=== PATIENT | female | born 1950 | race African-American/Black ===

== ENCOUNTER 2017-07-20 23:35 | Emergency (ER) | payer OTHER ==
[2017-07-21] MEDS: HYDROCODONE/APAP (10/325) TAB PO (00:34)
[2017-07-21] MEDS: ONDANSETRON (ODT) 4 MG TAB ODT (00:34)
== END 2017-07-21 02:54 | disposition home or self-care (01) ==
LOC: E/R 23:35
DX: M25.512 Pain in left shoulder (principal); M25.561 Pain in right knee; Z87.891 Personal history of nicotine dependence
CPT/HCPCS: 73030; 73562; 99284-25

== ENCOUNTER 2018-02-08 13:11 | Inpatient (IN) | payer OTHER ==
[2018-02-08 14:58] LABS: ADD MAN DIFF? NO
[2018-02-08 15:06] LABS: BASOPHIL # 0.1 10^3/ul (0.0-0.1); BASOPHILS % 0.8 % (0.0-2.0); EOSINOPHILS # 0.4 10^3/ul (0.0-0.5); EOSINOPHILS % 6.3 % (0.0-7.0); HEMATOCRIT 37.3 % (37.0-47.0); HEMOGLOBIN 12.2 g/dl (12.0-16.0); LYMPHOCYTES # 1.4 10^3/ul (0.8-2.9); LYMPHOCYTES % 23.9 % (15.0-51.0); MEAN CORPUSCULAR HEMOGLOBIN 30.1 pg (29.0-33.0); MEAN CORPUSCULAR HGB CONC 32.7 g/dl (32.0-37.0); MEAN CORPUSCULAR VOLUME 92.1 fl (82.0-101.0); MEAN PLATELET VOLUME 9.4 fl (7.4-10.4); MONOCYTE # 0.6 10^3/ul (0.3-0.9); MONOCYTES % 10.3 % (0.0-11.0); NEUTROPHIL # 3.5 10^3/ul (1.6-7.5); NEUTROPHILS % 58.5 % (39.0-77.0); PLATELET COUNT 272 10^3/UL (140-415); RED BLOOD COUNT 4.05 10^6/ul (4.20-5.40); RED CELL DISTRIBUTION WIDTH 13.2 % (11.5-14.5)
[2018-02-08 15:14] LABS: ADD UMIC YES; UR ASCORBIC ACID NEGATIVE (NEGATIVE); UR BACTERIA FEW /HPF (NONE SEEN); UR BILIRUBIN (Dip) NEGATIVE (NEGATIVE); UR BLOOD (Dip) NEGATIVE (NEGATIVE); UR CLARITY TURBID (CLEAR); UR COLOR YELLOW (YELLOW); UR GLUCOSE (Dip) NEGATIVE (NEGATIVE); UR KETONES (Dip) NEGATIVE (NEGATIVE); UR LEUKOCYTE ESTERASE (Dip) 3+ Leu/ul (NEGATIVE); UR MUCUS FEW /HPF (NONE SEEN); UR NITRITE (Dip) NEGATIVE (NEGATIVE); UR RBC 9 /HPF (0-5); UR SPECIFIC GRAVITY (Dip) 1.026 (1.003-1.030); UR SQUAMOUS EPITHELIAL CELL FEW /HPF (FEW); UR TOTAL PROTEIN (Dip) 1+ mg/dl (NEGATIVE); UR UROBILINOGEN (Dip) NEGATIVE (NEGATIVE); UR WBC 15 /HPF (0-5)
[2018-02-08] MEDS: SOD CHLORIDE 0.9% 1,000 ML IV (15:15)
[2018-02-08] MEDS: morphine 4 MG/ML VIAL IV (15:15)
[2018-02-08] MEDS: ONDANSETRON 4 MG INJ IV ×2 (15:15→22:35)
[2018-02-08 15:24] LABS: ALANINE AMINOTRANSFERASE 26 IU/L (13-69); ALBUMIN 3.8 g/dl (3.3-4.9); ALBUMIN/GLOBULIN RATIO 1.08; ALKALINE PHOSPHATASE 94 IU/L (42-121); ANION GAP 6 (5-13); ASPARTATE AMINO TRANSFERASE 32 IU/L (15-46); BILIRUBIN,INDIRECT 0.2 mg/dl (0-1.1); BILIRUBIN,TOTAL 0.2 mg/dl (0.2-1.3); BLOOD UREA NITROGEN 11 mg/dl (7-20); CALCIUM 9.9 mg/dl (8.4-10.2); CARBON DIOXIDE 32 mmol/L (21-31); CHLORIDE 105 mmol/L (97-110); CREATININE 0.58 mg/dl (0.44-1.00); GLUCOSE 99 mg/dl (70-220); LIPASE 133 U/L (23-300); POTASSIUM 3.4 mmol/L (3.5-5.1); SODIUM 143 mmol/L (135-144); TOTAL PROTEIN 7.3 g/dl (6.1-8.1)
[2018-02-08] MEDS: METOCLOPRAMIDE 10 MG INJ IV (16:33)
[2018-02-08] MEDS: CEFTRIAXONE 1 GM/50 ML (PMX) 50 ML IVPB (16:35)
[2018-02-08] MEDS: HYDROmorphONE 2 MG/ML SYG IV (16:36)
[2018-02-08] MEDS ORDERED: SOD CHLORIDE 0.9% 1,000 ML IV (17:35)
[2018-02-08] MEDS ORDERED: METOCLOPRAMIDE 10 MG INJ IV (18:00)
[2018-02-08] MEDS ORDERED: NACL 0.9% 3 ML SYG IV (18:00)
[2018-02-08] MEDS ORDERED: PROCHLORPERAZINE 10 MG INJ IV (18:00)
[2018-02-08] MEDS ORDERED: ACETAMINOPHEN 325 MG TAB PO ×2 (18:00)
[2018-02-08] MEDS ORDERED: morphine 4 MG/ML VIAL IV (18:00)
[2018-02-08] MEDS ORDERED: ONDANSETRON 4 MG INJ IV (18:00)
[2018-02-08] MEDS ORDERED: DOCUSATE SODIUM 100 MG CAP PO (18:00)
[2018-02-08] MEDS: NS + KCL 20 MEQ 1,000 ML IV (21:14)
[2018-02-08] MEDS: PANTOPRAZOLE 40 MG INJ IV (21:15)
[2018-02-08] MEDS ORDERED: HYDROCODONE/APAP (10/325) TAB PO (21:30)
[2018-02-08] MEDS ORDERED: CYPROHEPTADINE 4 MG TAB PO (22:00)
[2018-02-08] MEDS ORDERED: ALBUTEROL HFA 8 GM INHALER INH ×2 (22:00→23:00)
[2018-02-08] MEDS: CYPROHEPTADINE 4 MG TAB PO (22:30)
[2018-02-09] MEDS ORDERED: IBUPROFEN 600 MG TAB PO
[2018-02-09] MEDS: HYDROmorphONE 1 MG/ML SYG IV ×5 (00:16→20:40)
[2018-02-09] MEDS: DIPHENHYDRAMINE 50 MG INJ IV (00:17)
[2018-02-09] MEDS: PETROLATUM 28.35 GM JELLY TOP (00:18)
[2018-02-09] MEDS: CARISOPRODOL 350 MG TAB PO ×4 (00:19→20:39)
[2018-02-09] MEDS: AMITRIPTYLINE 50 MG TAB PO ×2 (00:19→20:39)
[2018-02-09] MEDS ORDERED: ALBUTEROL HFA 8 GM INHALER INH (01:00)
[2018-02-09] MEDS: NS + KCL 20 MEQ 1,000 ML IV ×3 (02:00→17:09)
[2018-02-09] MEDS: CYPROHEPTADINE 4 MG TAB PO ×3 (06:00→22:00)
[2018-02-09 06:07] LABS: ANION GAP 7 (5-13); BLOOD UREA NITROGEN 10 mg/dl (7-20); CALCIUM 8.6 mg/dl (8.4-10.2); CARBON DIOXIDE 25 mmol/L (21-31); CHLORIDE 112 mmol/L (97-110); CREATININE 0.57 mg/dl (0.44-1.00); GLUCOSE 91 mg/dl (70-220); SODIUM 144 mmol/L (135-144)
[2018-02-09 06:15] LABS: POTASSIUM 2.9 mmol/L (3.5-5.1)
[2018-02-09] MEDS ORDERED: POTASSIUM CHLORIDE (SR) 20 MEQ TAB PO (08:00)
[2018-02-09] MEDS ORDERED: DOCUSATE SODIUM 100 MG CAP PO (09:00)
[2018-02-09] MEDS ORDERED: CEPHALEXIN 500 MG CAP PO (09:00)
[2018-02-09] MEDS ORDERED: FERROUS SULFATE (EC) 325 MG TAB PO (09:00)
[2018-02-09] MEDS ORDERED: CARISOPRODOL 350 MG PO (09:00)
[2018-02-09] MEDS: TRIAMCINOLONE ACET 0.1% 15 GM OINT TOP (09:00)
[2018-02-09] MEDS ORDERED: predniSONE 20 MG TAB PO (09:00)
[2018-02-09] MEDS: FERROUS SULFATE (EC) 325 MG TAB PO ×2 (09:30→20:39)
[2018-02-09] MEDS ORDERED: DIPHENHYDRAMINE 25 MG CAP PO (09:30)
[2018-02-09] MEDS: ENOXAPARIN 40 MG/0.4 ML SYG SC (09:31)
[2018-02-09] MEDS: PANTOPRAZOLE 40 MG INJ IV (09:32)
[2018-02-09] MEDS: POTASSIUM CHLORIDE 20 MEQ POWDER FOR ORAL SOLN PO ×2 (09:32→11:55)
[2018-02-09] MEDS ORDERED: BETAMETHASONE TOP (10:00)
[2018-02-09] MEDS: ONDANSETRON 4 MG INJ IV (11:53)
[2018-02-09] MEDS: CEFTRIAXONE 1 GM/50 ML (PMX) 50 ML IVPB (16:13)
[2018-02-09] MEDS: METOCLOPRAMIDE 10 MG INJ IV (17:09)
[2018-02-09] MEDS: BARIUM SULFATE 135 ML (E-Z HD) PO (19:00)
[2018-02-09] MEDS: TRIAMCINOLONE ACET 0.1% 15 GM CR TOP (20:39)
[2018-02-09] MEDS: BETAMETHASONE DIPROPIONATE TOP (21:19)
[2018-02-10] MEDS: METOCLOPRAMIDE 10 MG INJ IV ×5 (00:09→23:51)
[2018-02-10] MEDS: NS + KCL 20 MEQ 1,000 ML IV ×4 (02:58→23:57)
[2018-02-10] MEDS: HYDROmorphONE 1 MG/ML SYG IV ×8 (03:02→23:51)
[2018-02-10] MEDS: CYPROHEPTADINE 4 MG TAB PO ×3 (06:01→23:51)
[2018-02-10] MEDS: CEFTRIAXONE 1 GM/50 ML (PMX) 50 ML IVPB (09:34)
[2018-02-10] MEDS: PANTOPRAZOLE 40 MG INJ IV (09:34)
[2018-02-10] MEDS: CARISOPRODOL 350 MG TAB PO ×3 (09:35→20:26)
[2018-02-10] MEDS: FERROUS SULFATE (EC) 325 MG TAB PO ×2 (09:36→20:27)
[2018-02-10] MEDS: ENOXAPARIN 40 MG/0.4 ML SYG SC (09:39)
[2018-02-10] MEDS: TRIAMCINOLONE ACET 0.1% 15 GM CR TOP ×2 (09:42→20:29)
[2018-02-10] MEDS: PETROLATUM 28.35 GM JELLY TOP (10:15)
[2018-02-10] MEDS ORDERED: DIPHENHYDRAMINE 25 MG CAP (11:09)
[2018-02-10] MEDS: DIPHENHYDRAMINE 50 MG CAP PO ×3 (11:20→23:50)
[2018-02-10] MEDS: DILTIAZEM (CD) 180 MG CAP PO (12:00)
[2018-02-10 12:44] LABS: ANION GAP 8 (5-13); BLOOD UREA NITROGEN 8 mg/dl (7-20); CALCIUM 9.2 mg/dl (8.4-10.2); CARBON DIOXIDE 23 mmol/L (21-31); CHLORIDE 111 mmol/L (97-110); CREATININE 0.56 mg/dl (0.44-1.00); GLUCOSE 107 mg/dl (70-220); POTASSIUM 4.4 mmol/L (3.5-5.1); SODIUM 142 mmol/L (135-144)
[2018-02-10] MEDS: AMITRIPTYLINE 50 MG TAB PO (20:26)
[2018-02-10] MEDS: ONDANSETRON 4 MG INJ IV (20:27)
[2018-02-11] MEDS: HYDROmorphONE 1 MG/ML SYG IV ×6 (03:09→20:50)
[2018-02-11] MEDS: METOCLOPRAMIDE 10 MG INJ IV ×3 (06:44→18:00)
[2018-02-11] MEDS: DIPHENHYDRAMINE 50 MG CAP PO (06:44)
[2018-02-11] MEDS: CYPROHEPTADINE 4 MG TAB PO ×3 (06:44→21:06)
[2018-02-11] MEDS: DILTIAZEM (CD) 180 MG CAP PO (09:00)
[2018-02-11] MEDS: PANTOPRAZOLE 40 MG INJ IV (09:00)
[2018-02-11] MEDS: FERROUS SULFATE (EC) 325 MG TAB PO ×2 (09:11→20:50)
[2018-02-11] MEDS: CARISOPRODOL 350 MG TAB PO ×3 (09:11→20:49)
[2018-02-11] MEDS: CEFTRIAXONE 1 GM/50 ML (PMX) 50 ML IVPB (09:11)
[2018-02-11] MEDS: ENOXAPARIN 40 MG/0.4 ML SYG SC (09:12)
[2018-02-11] MEDS: TRIAMCINOLONE ACET 0.1% 15 GM CR TOP ×2 (09:13→20:51)
[2018-02-11] MEDS: NS + KCL 20 MEQ 1,000 ML IV ×3 (09:20→21:47)
[2018-02-11] MEDS: PROPOFOL 20 ML (16:41)
[2018-02-11] MEDS: DICLOFENAC SODIUM 1% GEL 100 GM TUBE TP ×3 (17:00→20:49)
[2018-02-11 19:20] LABS: ADD UMIC NO; UR ASCORBIC ACID NEGATIVE (NEGATIVE); UR BILIRUBIN (Dip) NEGATIVE (NEGATIVE); UR BLOOD (Dip) NEGATIVE (NEGATIVE); UR CLARITY CLEAR (CLEAR); UR COLOR COLORLESS (YELLOW); UR GLUCOSE (Dip) NEGATIVE (NEGATIVE); UR KETONES (Dip) NEGATIVE (NEGATIVE); UR LEUKOCYTE ESTERASE (Dip) NEGATIVE Leu/ul (NEGATIVE); UR NITRITE (Dip) NEGATIVE (NEGATIVE); UR SPECIFIC GRAVITY (Dip) 1.008 (1.003-1.030); UR TOTAL PROTEIN (Dip) NEGATIVE (NEGATIVE); UR UROBILINOGEN (Dip) NEGATIVE (NEGATIVE)
[2018-02-11] MEDS: AMITRIPTYLINE 50 MG TAB PO (20:49)
[2018-02-11] MEDS: BETAMETHASONE DIPROPIONATE TOP (20:51)
[2018-02-12] MEDS: HYDROmorphONE 1 MG/ML SYG IV ×6 (01:39→20:32)
[2018-02-12] MEDS: METOCLOPRAMIDE 10 MG INJ IV ×2 (05:22)
[2018-02-12] MEDS: CYPROHEPTADINE 4 MG TAB PO ×3 (05:22→22:20)
[2018-02-12 05:36] LABS: ADD MAN DIFF? NO
[2018-02-12 05:48] LABS: BASOPHILS % 0.7 % (0.0-2.0); EOSINOPHILS # 0.8 10^3/ul (0.0-0.5); EOSINOPHILS % 14.6 % (0.0-7.0); HEMATOCRIT 33.4 % (37.0-47.0); HEMOGLOBIN 10.6 g/dl (12.0-16.0); LYMPHOCYTES # 1.5 10^3/ul (0.8-2.9); LYMPHOCYTES % 25.5 % (15.0-51.0); MEAN CORPUSCULAR HEMOGLOBIN 29.7 pg (29.0-33.0); MEAN CORPUSCULAR HGB CONC 31.7 g/dl (32.0-37.0); MEAN CORPUSCULAR VOLUME 93.6 fl (82.0-101.0); MONOCYTE # 0.6 10^3/ul (0.3-0.9); NEUTROPHIL # 2.8 10^3/ul (1.6-7.5); NEUTROPHILS % 48.8 % (39.0-77.0); PLATELET COUNT 237 10^3/UL (140-415); RED BLOOD COUNT 3.57 10^6/ul (4.20-5.40); RED CELL DISTRIBUTION WIDTH 13.5 % (11.5-14.5)
[2018-02-12 05:48] LABS: WHITE BLOOD COUNT 5.7 10^3/ul (4.8-10.8)
[2018-02-12 06:10] LABS: MAGNESIUM 1.7 mg/dl (1.7-2.5)
[2018-02-12 06:32] LABS: ALANINE AMINOTRANSFERASE 15 IU/L (13-69); ALBUMIN 3.2 g/dl (3.3-4.9); ALKALINE PHOSPHATASE 99 IU/L (42-121); ANION GAP 7 (5-13); ASPARTATE AMINO TRANSFERASE 20 IU/L (15-46); BLOOD UREA NITROGEN 6 mg/dl (7-20); CALCIUM 8.9 mg/dl (8.4-10.2); CARBON DIOXIDE 27 mmol/L (21-31); CHLORIDE 108 mmol/L (97-110); CREATININE 0.56 mg/dl (0.44-1.00); GLUCOSE 111 mg/dl (70-220); POTASSIUM 4.1 mmol/L (3.5-5.1); SODIUM 142 mmol/L (135-144); TOTAL PROTEIN 6.1 g/dl (6.1-8.1)
[2018-02-12] MEDS: NS + KCL 20 MEQ 1,000 ML IV ×2 (06:42→23:18)
[2018-02-12] MEDS: CARISOPRODOL 350 MG TAB PO ×3 (10:28→20:28)
[2018-02-12] MEDS: CEFTRIAXONE 1 GM/50 ML (PMX) 50 ML IVPB (10:28)
[2018-02-12] MEDS: DICLOFENAC SODIUM 1% GEL 100 GM TUBE TP ×4 (10:28→20:28)
[2018-02-12] MEDS: FERROUS SULFATE (EC) 325 MG TAB PO ×2 (10:28→20:28)
[2018-02-12] MEDS: TRIAMCINOLONE ACET 0.1% 15 GM CR TOP ×2 (10:29→22:20)
[2018-02-12] MEDS: ENOXAPARIN 40 MG/0.4 ML SYG SC (10:31)
[2018-02-12] MEDS: METOCLOPRAMIDE 5 MG TAB PO ×3 (11:54→20:31)
[2018-02-12] MEDS: DIPHENHYDRAMINE 50 MG CAP PO ×2 (13:04→20:31)
[2018-02-12] MEDS: SUCRALFATE 1 GM TAB PO ×3 (13:04→20:27)
[2018-02-12] MEDS: PANTOPRAZOLE (EC) 40 MG TAB PO (17:52)
[2018-02-12] MEDS: AMITRIPTYLINE 50 MG TAB PO (20:27)
== END 2018-02-12 23:50 | disposition home or self-care (01) | DRG 690 ==
LOC: E/R 13:11 → PP2 17:36
PROC: 0DB98ZX Excision of Duodenum, Via Natural or Artificial Opening Endoscopic, Diagnostic (ICD-10-PCS; principal; 2018-02-11 15:30)
PROC: 0DB68ZX Excision of Stomach, Via Natural or Artificial Opening Endoscopic, Diagnostic (ICD-10-PCS; 2018-02-11 15:30)
DX: N39.0 Urinary tract infection, site not specified (principal); R13.10 Dysphagia, unspecified; K25.9 Gastric ulcer, unspecified as acute or chronic, without hemorrhage or perforation; K22.4 Dyskinesia of esophagus; F17.200 Nicotine dependence, unspecified, uncomplicated; L50.9 Urticaria, unspecified; G89.29 Other chronic pain; M54.9 Dorsalgia, unspecified; B18.2 Chronic viral hepatitis C; R09.89 Other specified symptoms and signs involving the circulatory and respiratory systems; R11.2 Nausea with vomiting, unspecified
CPT/HCPCS: 71045; 74230; 76700; 78264; 80048; 80053; 81001; 81003; 83690; 83735; 85025; 87086; 88305; 88312; 90686; 92610; 96361; 96374; 96375; 99285-25; G0378